=== PATIENT | female | born 1980 | race Caucasian/White ===

== ENCOUNTER 2022-07-29 09:10 | Outpatient (CLI) | payer OTHER, SELFPAY ==
--- NOTE | 2022-07-29 09:20 | MM_ITS ---
WS: [id number] Bilateral screening 3D tomosynthesis digital mammogram, 07/29/2022 Clinical Data: SCREENING Comparison: 03/06/2020, 04/03/2018. Findings: The breast parenchymal pattern shows fat replacement. No spiculated masses or clustered calcification s are seen. There are no secondary signs of carcinoma. MM/[id number] Impression: 1. Negative bilateral mammogram unchanged. 2. Recommend annual screening mammograms. 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
== END 2022-07-29 09:11 | disposition home or self-care (01) ==
LOC: RAD 09:15
PROVIDERS: PCP Family Medicine; Visit Provider Family Medicine
DX: Z12.31 Encounter for screening mammogram for malignant neoplasm of breast (principal)
CPT/HCPCS: 77063; 77067